=== PATIENT | male | born 1970 | race Caucasian/White ===

== ENCOUNTER → 2016-07-06 | Day surgery (SDC) | payer BC ==
[2016-06-27 11:13] VITALS: BMI 42.0
[~2016-07-06] VITALS: Ht 177.8 cm; Wt 131.8 kg
[~2016-07-06] MED LIST: ALBINS/ INH; ALBU18002 INH; ALLO300T2 PO; CARV6.252 PO; LEVO100T7 PO; LIDOCAINE HCL 2% 2 ML VIAL (20MG/ML) ONE; LISI40TA PO; MIDAZOLAM HCL 1 MG/ML 2ML VIAL ONE; MULT-506 PO; PROPOFOL IV EMULSION 10 MG/ML 20 ML VIAL IV ONE; SODIUM CHLORIDE 0.9% 500ML 500 ML IV ONE
[2016-07-06 08:03] VITALS: Ht 177.8 cm; Wt 131.8 kg
--- NOTE | 2016-07-06 08:47 | Endo History and Physical ---
History & Physical Date of Service: Jul 06, 2016. Chief Complaint: HX OF DIVERTICULISTS Referring Physician: DR BRONSON History of Present Illness Diverticulitis with microperforation in 03/2016, first colonoscopy. Past Surgical History Hx Cardiac Surgery: No Hx Internal Defibrillator: No Hx Pacemaker: No Hx Abdominal Surgery: No Hx of Implantable Prosthesis: No Hx Post-Op Nausea and Vomiting: No Hx Cancer Surgery: No Hx Thoracic Surgery: No Hx Orthopedic: Yes (LEFT BICEP TENDON REPAIR) Hx Urinary Tract Surgery: No Family History None Social History Smoking Status: Former Smoker Hx Substance Use: No ("NOTHING FOR 10 YEARS") Hx Alcohol Use: Yes (6 BEERS WEEKLY) Allergies Coded Allergies: Sulfamethoxazole w/Trimethoprim (Verified Allergy, Unknown, HIVES, 07/06/16 ) Current Medications Reported Home Medications Medications Dose Route/Sig Max Daily Dose Days Date Category Multivitamin (Multivitamins) Tab 1 Tab PO QAM 06/27/16 Reported Proair Respiclick (Albuterol Sulfate) 108 Mcg/Act Aer 2 Puff INH QID PRN 06/27/16 Reported Proventil 0.083% 2.5MG/3ML (Albuterol Sulf) 2.5 Mg/3 Ml Nebu 2.5 Mg INH QID PRN 06/27/16 Reported Levothyroxine Sodium 100 Mcg Tab 1 Tab PO QAM 90 06/27/16 Reported Zyloprim (Allopurinol) 300 Mg Tab 300 Mg PO QAM 06/27/16 Reported Zestril (Lisinopril) 40 Mg Tab 40 Mg PO QAM 06/27/16 Reported Coreg (Carvedilol) 6.25 Mg Tab 6.25 Mg PO BIDM 04/14/16 Reported Vital Signs Weight (Kilograms): 131.82 Height (Feet): 5 Height (Inches): 10 Date Time Temp Pulse Resp B/P Pulse Ox O2 Delivery O2 Flow Rate FiO2 07/06/16 08:14 36.9 63 20 146/79 98 Room Air Physical Exam General Appearance: WD/WN, no apparent distress Respiratory/Chest: Auscultation: breath sounds normal, no wheezing, no rales/crackles Cardiovascular: Apical Impulse: not displaced Heart Auscultation: RRR, no murmurs Abdomen: Bowel Sounds: normal Inspection & Palpation: soft, no tenderness, guarding & rebound Assessment and Plan Cleared for colonoscopy.
--- NOTE | 2016-07-06 09:27 | GI REPORT ---
Procedure Date: 07/06/2016 8:14 AM Procedure: Colonoscopy Indications: Screening for colorectal malignant neoplasm, Incidental - Follow-up of diverticulitis Medicines: Monitored Anesthesia Care Complications: No immediate complications. Estimated blood loss: None. Estimated Blood Loss: Estimated blood loss: none. Procedure: Pre-Anesthesia Assessment: - Prior to the procedure, a History and Physical was performed, and patient medications, allergies and sensitivities were reviewed. The patient's tolerance of previous anesthesia was reviewed. - ASA Grade Assessment: III - A patient with severe systemic disease. After I obtained informed consent, the scope was passed under direct vision. Throughout the procedure, the patient's blood pressure, pulse, and oxygen saturations were monitored continuously. The scope was introduced through the anus and advanced to the terminal ileum, with identification of the appendiceal orifice and IC valve. The colonoscopy was performed with ease. The patient tolerated the procedure well. The quality of the bowel preparation was excellent. Findings: Multiple medium-mouthed diverticula were found from sigmoid to descending colon. Impression: - Diverticulosis from sigmoid to descending colon. - No specimens collected. - The colon was otherwise normal to the terminal ileum with retroflexed views of the colon and terminal ileum. Recommendation: - Repeat colonoscopy in 10 years for screening purposes. - Discharge patient to home (with escort). Cuauhtemoc Whitaker M.D. Cuauhtemoc Whitaker MD 07/06/2016 9:26:20 AM This report has been signed electronically. Note Initiated On: 07/06/2016 8:14 AM I attest to the content of the Intraoperative Record and orders documented therein, exceptions below
--- NOTE | 2016-07-06 09:33 | Discharge Instructions ---
Endoscopy Patient Instructions Date / Procedure(s) Performed Jul 06, 2016. Colonoscopy Allergy Information Coded Allergies: Sulfamethoxazole w/Trimethoprim (Verified Allergy, Unknown, HIVES, 07/06/16 ) Discharge Date / Findings Jul 06, 2016. Diverticulosis. Medication Instructions Restart Stopped Medication(s): Restart all medications Provider Instructions Activity Restrictions - No exercising or heavy lifting for 24 hours. - Do not drink alcohol the day of the procedure. - Do not drive a car or operate machinery until the day after the procedure. - Do not make any important decisions or sign important papers in 24 hours after the procedure. Following Day: - Return to full activity which may include returning to work/school. Diet Start your diet with liquids and light foods (jello, soup, juice, toast). Then eat your usual diet if not nauseated. Treatment For Common After Affects For mild abdominal pain, bloating, or excessive gas: - Rest - Eat lightly - Lie on right side Follow-Up Information Follow-up with DR BRONSON as scheduled Repeat colonoscopy in ten years Anesthesia Information What You Should Know You have had a procedure that required some medicine to reduce anxiety and discomfort. This treatment is called moderate sedation. After receiving the treatment, you may be sleepy, but you will be able to breathe on your own. The effects of the treatment may last for several hours. Follow these instructions along with Activity/Diet recommendations noted above: * Do NOT do anything where dizziness or clumsiness would be dangerous. * Rest quietly at home today, then you can be up and about tomorrow. * Have a responsible person stay with you the rest of today. * You may have had an I.V. today. If so, you may take the dressing off later today. Recommendations Call your doctor if: * Trouble breathing * Continuous vomiting for more than 24 hours * Temperature above 101 degrees * Severe abdominal pain or bloating * Pain not relieved by pain medicine ordered * There is increased drainage or redness from any incision * A large amount of rectal bleeding greater than 2-3 tablespoons. (If you had a polyp/s removed or have hemorrhoids, a small amount of blood - from the rectum is to be expected.) * You have any unanswered questions or concerns. IN THE EVENT OF A SERIOUS EMERGENCY, GO TO THE NEAREST EMERGENCY ROOM Your discharge instructions were prepared by provider Cuauhtemoc L Sherman. Patient Instructions Signature Page Kiko Slater Patient (or Guardian) Signature/Date: I have read and understand the instructions given to me by my caregivers. Caregiver/RN/Doctor Signature/Date: The above-named patient and/or guardian has received patient instructions on this date. + Original Patient Signature Page (only) stays with chart. Please make copy for patient.
--- NOTE | 2016-07-06 09:36 | Anesthesiology Progress Note ---
Anesthesia Post Op Note Date & Time Jul 06, 2016 at 09:36 Vital Signs Pain Intensity: 0 Vital Signs Past 12 Hours Date Time Temp Pulse Resp B/P Pulse Ox O2 Delivery O2 Flow Rate FiO2 07/06/16 09:32 61 18 152/90 96 Room Air 07/06/16 09:17 64 16 114/57 96 Room Air 07/06/16 08:14 36.9 63 20 146/79 98 Room Air Notes Mental Status: alert / awake / arousable, participated in evaluation Pt Amnestic to Procedure: Yes Nausea / Vomiting: adequately controlled Pain: adequately controlled Airway Patency, RR, SpO2: stable & adequate BP & HR: stable & adequate Hydration State: stable & adequate Anesthetic Complications: no major complications apparent
[2016-07-06 09:47] VITALS: BP 154/98; PULSE 61; O2SAT 98
== END | disposition home or self-care (01) ==
LOC: C.GI 07:16
PROVIDERS: ATTEND Internal Medicine Gastroenterology
DX: Z12.11 Encounter for screening for malignant neoplasm of colon (principal); K57.30 Diverticulosis of large intestine without perforation or abscess without bleeding; J45.909 Unspecified asthma, uncomplicated; E66.01 Morbid (severe) obesity due to excess calories; G47.33 Obstructive sleep apnea (adult) (pediatric); Z88.2 Allergy status to sulfonamides; Z68.41 Body mass index [BMI] 40.0-44.9, adult; Z98.890 Other specified postprocedural states; Z87.891 Personal history of nicotine dependence